=== PATIENT | male | born 1935 | race Caucasian/White ===

== ENCOUNTER 2016-05-16 14:45 | Inpatient (IN) | payer OTHER ==
[~2016-05-16] VITALS: Ht 175.3 cm; Wt 103.4 kg
--- NOTE | ~2016-05-16 | EKG ---
[place] [address] [facility] [place] [address] ELECTROCARDIOGRAM REPORT Name: RAVENJODI Kimberlyn Room #: 306-P ADM IN M.R.#: [id number] Admission: 05/16/16 Attend Phys: Domenic Dodson DO Discharge: Date of : 31 Report #: [id number] THIS REPORT FOR: //name// [facility] ED Test Date: 2016-05-16 Test Time: 15:18:35 Pat Name: JODI CARBAJAL Department: Room: 306 Gender: M Fish Flipper: latosha : 1935 Requested By: Beni Aguero Order Number: [id number] MD: Samm Brito Measurements Intervals Aragon Rate: 92 P: 30 IN: 165 QRS: 3 QRSD: 96 T: 61 QT: 384 QTc: 476 Interpretive Statements Sinus rhythm Atrial premature complexes Low voltage, extremity and precordial leads No previous ECG available for comparison Electronically Signed On 05-17-2016 7:34:48 [employer] OFFICER by Samm Brito [email or web address] <ELECTRONICALLY SIGNED> By: Samm Brito MD, [facility] 05/17/16 0734 1518 1518 Samm Brito MD, [facility] /EPI
--- NOTE | ~2016-05-16 | S ---
[facility] [place] [address] SURGICAL PATH RPT PROCEDURE Name: JEANNINE CARBAJAL Room #: 306-P [facility] IN M.R.#: [id number] Admission: 05/16/16 Date of : 31 Discharge: 05/24/16 Report #: [id number] Path Case #: [id number] PATHOLOGY REPORT COLLECTION DATE: 05/18/2016 RECEIVED DATE: 05/20/2016 SUBMITTING PHYS: Dr. Faraz Navarrete OTHER PHYS: Dr. Domenic Houser ADDENDUM REPORT (Order Date: 05/25/2016 15:48) ADDENDUM COMMENT: An addendum is issued to relay the immunohistochemical stain results: Immunohistochemical stains with appropriate controls show: (Block B1) AE1/AE3: positive PSAP: positive PSA: negative Based on the morphology and immunohistochemical staining pattern, these findings are consistent with involvement by metastatic carcinoma, prostatic origin. Correlation with clinical findings is recommended. (DOTQ:csd; d/t: 05/25/2016) Professional services performed by [employer] at [facility], [address] [address]. Technical services performed by [employer] at [address] [place] [address], [address] [place] [address]. ELECTRONICALLY SIGNED BY: Henna Vizcaino M.D. DATE/TIME:05/26/2016 17:05 SPECIMEN(S) RECEIVED: A.Bone marrow, clot B.Bone marrow, biopsy C.Bone marrow, aspirate smears D.Peripheral smear * * * * * * * * * * * * FINAL DIAGNOSIS: Bone marrow aspirate, biopsy, cell clot and peripheral blood: - Peripheral blood with severe normocytic anemia, left shifted granulocytes, severe thrombocytopenia, and circulating nucleated red blood cells. - BONE MARROW WITH DIFFUSE INVOLVEMENT BY FIBROSIS AND METASTATIC CARCINOMA. (SEE COMMENT) COMMENT: [place] [address] [place] [address] SURGICAL PATH RPT PROCEDURE Name: JEANNINE CARBAJAL Room #: 306-P [facility] IN [facility].#: [id number] Admission: 05/16/16 Date of : 31 Discharge: 05/24/16 Report #: [id number] Path Case #: [id number] Overall, the bone marrow is diffusely involved by a fibrotic process and metastatic carcinoma. Immunohistochemical stains for further subclassification are pending, and will be reported as an addendum. A artist's representative slide is co-reviewed with Dr. Blanche Darling. The case is discussed preliminarily with Dr. Faraz Navarrete on 05/23/16 at approximately 4:45 p.m. (CLW:; d/t: 05/24/16) PATHOLOGIST: Lidia Medrano M.D. REPORT ELECTRONICALLY SIGNED BY: Lidia Medrano M.D. DATE/TIME: 05/25/2016 12:49 * * * * * * * * * * * * MICROSCOPIC DESCRIPTION: CBC Data (05/18/16): WBC 4,300 /uL, RBC 1.79, hemoglobin 5.2 g/dL, hematocrit 15.9%, MCV 88.8 fL, MCH 29.4 pg, MCHC 33.0 g/dL, RDW 21.4%, and platelet count 25,000 /uL. Manual white blood cell differential: 41% segs, 10% bands, 26% lymphs, 10% monos, 7% eos, 2% basos, 2% metas, 2% myelos, and 3 nRBC/WBC. Peripheral Blood Smear: Cytomorphological examination of the Walker's stained peripheral blood smear confirms the provided data. Red blood cells show severe normocytic anemia with moderate anisocytosis. No significant poikilocytosis is identified. Dacrocytes (teardrop cells, pointed RBCs) are easily identified. White blood cells are predominantly segmented neutrophils and are without significant dyspoiesis. There is a mild to moderate left shift with rare myelocytes and metamyelocytes noted on scanning. Lymphocytes are predominantly small, round, and mature appearing with condensed chromatin and scant cytoplasm with admixed large granular lymphocytes. Monocytes are mature. Platelets are markedly decreased in number and mainly normal in morphology with rare larger platelets noted. Nucleated red blood cells are seen. Aspirate Smear: Cytomorphological examination of the Walker's stained aspirate smear show spicules present. The spicules shows markedly decreased trilineage hematopoiesis and are composed predominantly cohesive clusters of large atypical malignant cells. Iron stain of the aspirate smear shows 0/4+ iron positivity. It is predominantly blood and peripheral blood elements with no intact spicules present. Core Biopsy and Cell Clot: The decalcified bone marrow core biopsy is adequate. The bone marrow is diffusely replaced by a fibroblastic proliferation. Islands of cohesive malignant tumor cells are identified. Background trilineage hematopoiesis is markedly decreased. Bony trabeculae are expanded and sclerotic. Blood vessels are unremarkable. The cell clot is predominantly blood and peripheral blood elements with a rare small spicule present showing involvement by malignant tumor cells. [facility] [address] [place] [address] SURGICAL PATH RPT PROCEDURE Name: JEANNINE CARBAJAL Room #: 306-P [facility] IN M.R.#: [id number] Admission: 05/16/16 Date of : 31 Discharge: 05/24/16 Report #: [id number] Path Case #: [id number] stain of the cell clot (block A1) shows 0/4+ iron positivity. Flow Cytometry: Flow cytometric immunophenotypic analysis was performed at [facility]. The diagnosis is "no diagnostic immunophenotypic abnormalities detected." There are 29.6% lymphocytes. Of the lymphocytes, there are 48% T-cells with a CD4/CD8 ratio of 0.9 and no aberrant T-cell antigen expression and 7% polyclonal B-cells. There are 0.5% CD34 positive cells (blasts) and 0.15% precursor B-cells. No immunophenotypic evidence of a lymphoproliferative disorder, acute leukemia, increase in blasts or increase in plasma cells is identified. Please see separate flow cytometry report from [facility] ([id number]). Cytogenetics: Cytogenetic chromosomal analysis is was performed at [facility]. The karyotype is 46,XY[20]. The interpretation is a normal male karyotype. Cytogenetic analysis shows a normal male karyotype in all cells analyzed. Please see separate cytogenetics report from [facility] ([id number]). GROSS PATHOLOGY: A. Received in formalin labeled "Carbajal, Jeannine and clot (BM aspirate)," is blood coagulum, measuring 5.3 x 3.2 x 0.5 cm in aggregate dimensions. The specimen is submitted entirely in cassettes A1-A3. B. Received in formalin labeled "Carbajal, Jeannine and bone marrow biopsy," are 2 needle cores of palacio bone, measuring 1.2 and 1.5 cm in length and 0.2 cm in diameter. The specimen is submitted entirely in cassette B1, following decalcification. (TTL; 05/20/2016) CLINICAL HISTORY: 80 year-old man with severe anemia and thrombocytopenia; history of prostate cancer. INITIAL CPT CODE(S): A; 87460, 14810 B; 33659, 26756, 22824, 15231, 69823 C; 26632, 95720 D; 44019 Professional services performed by [facility] at [address], [place] [address] Technical services performed by [facility] at [address] [place] [address], [place] [address]. [facility] [address] [place] [address] SURGICAL PATH RPT PROCEDURE Name: JEANNINE CARBAJAL Kimberlyn Room #: 306-P [facility] IN .R.#: [id number] Admission: 05/16/16 Date of : 33 Discharge: 05/24/16 Report #: [id number] Path Case #: [id number] [facility] [address] [address] PHONE: [phone] DIRECTOR: Robby Wang M.D. * * * END OF REPORT * * *
--- NOTE | ~2016-05-16 | S ---
[facility] [place] [address] SURGICAL PATH RPT PROCEDURE Name: JODI CARBAJAL Room #: 306-P ADM IN M.R.#: [id number] Admission: 05/16/16 Date of : 33 Discharge: Report #: [id number] Path Case #: [id number] PATHOLOGY REPORT COLLECTION DATE: 05/17/2016 RECEIVED DATE: 05/18/2016 SUBMITTING PHYS: Dr. Faraz Navarrete OTHER PHYS: Dr. Domenic Patricia SPECIMEN(S) RECEIVED: A.Peripheral smear * * * * * * * * * * * * FINAL DIAGNOSIS: Peripheral blood smear: - Severe normocytic anemia, mildly left shifted granulocytes and severe thrombocytopenia. (see comment) COMMENT: Overall, the peripheral blood has severe normocytic anemia and severe thrombocytopenia. The WBC count is within the normal reference range. Granulocytes are mildly left shifted. The etiology of the findings is unclear based entirely on slide review. Potential causes of normocytic anemia include anemia of chronic disease, treated and/or compensated vitamin and mineral deficiencies, acute blood loss, and primary bone marrow disorders. Potential causes of thrombocytopenia include immune and non-immune platelet destruction, drug and/or toxic exposures, dilutional and primary bone marrow disorders. The differential diagnosis also includes a bone marrow infiltrative process. Correlation with clinical history and additional laboratory data is recommended. (CLW:; d/t: 05/18/16) PATHOLOGIST: Lidia Medrano M.D. REPORT ELECTRONICALLY SIGNED BY: Lidia Medrano M.D. DATE/TIME: 05/18/2016 21:34 * * * * * * * * * * * * MICROSCOPIC DESCRIPTION: CBC Data (05/17/16): WBC 4,600 /uL, RBC 1.91, hemoglobin 5.5 g/dL, hematocrit 17.1%, MCV 89.3 fL, MCH 28.8 pg, MCHC 32.3 g/dL, RDW 20.9%, and platelet count 25,000 /uL. Manual white blood cell differential: 34% segs, 26% bands, 22% lymphs, 9% monos, 6% eos, 2% metas, 1% myelos, and 5 NRBC/100 WBC. Peripheral Blood Smear: Cytomorphological examination of the Walker's stained peripheral [address] [address] SURGICAL PATH RPT PROCEDURE Name: JODI CARBAJAL Kimberlyn Room #: 306-P ADM IN [facility].#: [id number] Admission: 05/16/16 Date of : 33 Discharge: Report #: [id number] Path Case #: [id number] blood smear confirms the provided data. Red blood cells show severe normocytic anemia with mild anisocytosis. No significant poikilocytosis is identified. Scattered elliptocytes and dacryocytes (pointed RBCs, teardrop cells) are identified. No schistocytes or microspherocytes are seen. White blood cells are predominantly granulocytes. Granulocytes are predominantly mature (segmented neutrophils and band forms), and are without significant dyspoiesis. There is a mild left shift with occasional myelocytes and metamyelocytes noted on scanning. No blasts or Mitchell rods are seen. Lymphocytes are predominantly small, round, and mature appearing with condensed chromatin and scant cytoplasm with admixed large granular lymphocytes. On scanning, no markedly atypical lymphoid cells are seen. Monocytes are mature. Platelets are markedly decreased in number and mainly normal in morphology with rare larger platelets noted. CLINICAL HISTORY: 81 year-old man with prostate cancer and pancytopenia. Morphologic review of the peripheral blood smear is requested by the patient's physician. INITIAL CPT CODE(S): A; NC Professional services performed by [employer] at [facility] [address], [place] [address] Technical services performed by [employer] at [address] [place] [address], [address], [place] [address]. [facility] [address] [place] [address] PHONE: [phone] DIRECTOR: Robby Wang M.D. * * * END OF REPORT * * *
--- NOTE | ~2016-05-16 | P ---
[facility] [place] [address] PROCEDURE REPORT Name: JODI CARBAJAL Room #: 306-P [facility] IN .R.#: [id number] Admission: 05/16/16 Attend Phys: Domenic Dodson DO Discharge: 05/24/16 Date of : 33 Report #: [id number] THIS REPORT FOR: //name// CC: JULIANE Dodson DO Faraz Navarrete MD DATE OF SERVICE: 05/17/2016 PROCEDURE PERFORMED: EGD. HISTORY OF PRESENT ILLNESS: The patient is an 81-year-old male with a history of anemia. He also has a history of prostate cancer as well as weight loss. He apparently has metastatic prostate cancer. There is concern for the possibility of bone marrow involvement. Dr. Navarrete is following. He has a history of [employer] and refuses blood products. His hemoglobin is 5.7. He does have a Hemoccult positive stool as well as dark stools, but he has been taking p.o. iron. Plan is for EGD. DESCRIPTION OF PROCEDURE: The risks and benefits of the procedure were explained to the patient, those risks including but not limited to bleeding, perforation, the risk of sedation. He understood these risks and gave informed consent. Sedation was given using propofol per anesthesia. Next, using a standard [employer] upper endoscope, the scope was placed in the patient's mouth and advanced under direct vision through the esophagus, stomach and into the second portion of the duodenum. The esophagus was normal throughout. In the stomach, there was a mild gastritis with several clean white based ulcers in the gastric antrum. No evidence of active bleeding. The area was friable. The pylorus was normal and patent. In the duodenal bulb, there was a mild duodenitis noted. No evidence of active bleeding, otherwise normal upper endoscopy, the scope was then withdrawn and the procedure terminated. The patient tolerated the procedure well. IMPRESSION: 1. Several small clean white based ulcers in the gastric antrum, possible source of recent gastrointestinal bleed, no evidence of active bleeding at this time. 2. Mild duodenitis. RECOMMENDATIONS: Continue PPI drip today. We will add Carafate and continue monitoring hemoglobin closely. [facility] [address] [place] [address] PROCEDURE REPORT Name: RAVENJODI Sofia Room #: 306-P [facility] IN M.R.#: [id number] Admission: 05/16/16 Attend Phys: Domenic Dosdon DO Discharge: 05/24/16 Date of : 33 Report #: [id number] Thank you for allowing me to participate in his care. <ELECTRONICALLY SIGNED> By: Tee Patricia MD 06/01/16 1059 0834 1051 Tee Patricia MD /nt
--- NOTE | ~2016-05-16 | HC ---
[facility] [place] [address] CONSULTATION Name: JODI CARBAJAL Room #: 306-P ADM IN M.R.#: [id number] Admission: 05/16/16 Attend Phys: Domenic Dodson DO Discharge: Date of : 33 Report #: [id number] THIS REPORT FOR: //name// CC: Tee George MD, Dr. Domenic Lujan MD REASON FOR CONSULTATION: Cytopenias as well as prostate cancer. HISTORY OF PRESENT ILLNESS: The patient is an 81-year-old male from the [place], [place] area, who had worked in construction. He goes by the name Zeyad. Previously, he had been working with [employer] people. The patient's name means angry or irate. He had noticed about maybe an 80-pound weight loss, somewhat intentional, during the last year, but recently not so much and also feeling poorly for maybe the last 2-3 months or 7 weeks ago. He had been told that his blood was low about 7 weeks ago. I think that is about the time his hemoglobin was 8, which had been 14 before. He denies headache, fevers, chills, nausea, vomiting, dyspepsia, new constipation or new diarrhea. He does have dark stool, but it has been since his put him on oral iron pill maybe about 4-6 weeks ago. No new ankle swelling. No skin rash. He does feel exhausted. He feels like he is moving his air okay. PAST MEDICAL HISTORY: Past history is notable for the prostate cancer diagnosed [address] Calles his PSA was 3. He had biopsy with 7 out of 11 core biopsies positive. He does not know his [place] score. He did find, for about, I think, 3 years that his bone scan was positive. PSA was elevated, may be 190, though I am not sure what it was at that time. He had radiation therapy completed, he thinks, about February 2015. PSA went down low and recently, it had gone back up. He had been seeing Dr. Wes Pelaez, who had been planning to begin Zytiga with prednisone and it is currently to be delivered, but has not actually begun yet. Bone scans were done in [place]. Most of his lab work was done at [facility]. He also has a history of chronic back pain; sleep apnea, uses CPAP at home; also hernia that is recurrent, but he has had surgery times 3. 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 The patient had been taking one, because of his back pain, 1000 mg of Naprosyn b.i.d. for several years. ALLERGIES: None known. SOCIAL HISTORY: He is retired, used to do construction, both commercial and residential. Nonsmoker. No alcohol. No street drugs. He is [address] [address] CONSULTATION Name: JODI CARBAJAL Kimberlyn Room #: 306-P [facility] IN M.R.#: [id number] Admission: 05/16/16 Attend Phys: Domenic Dodson, Discharge: Date of : 33 Report #: [id number] Witness. FAMILY HISTORY: Mother from "uterine cancer" at age 43, but I wonder if it might have been ovarian cancer. He had 2 sisters with also some type of abdominal or possibly uterine cancer. No brothers. He had a son who from complications from hemodialysis. A daughter has multiple sclerosis and is BRCA positive. Has another son who, I do not believe, has been tested. His , Fatmata, is a patient of mine. LABORATORY DATA: Lab work here in the hospital is notable for on admission, his creatinine was 1.4; down the 1.1 after hydration. Albumin 3.4. AST is 73, alkaline phosphatase 1180. Recent lab had hemoglobin of 6.1 and I believe, today, it is 5.7; MCV of 88.1; white count 5.5; platelet count of 31,000 and RDW 21.1. Differential fairly normal, though the bands are up a little bit at 9%. Note that he has some nucleated RBCs, 7 and has some slight polychromasia and 2+ anisocytosis. His other lab is notable for iron of 93, URBC to 148, TIBC 241 and percent saturation 39. He also said on his differential, he has metamyelocytes and myelocytes. Ferritin was 1490. He describes having large platelets occasional. I do not have an MPV. Observed retic count is 6.29. Absolute retic count, I believe, is 125. Mean retic volume 110, immature reticulocyte fraction 0.7. PHYSICAL EXAMINATION: GENERAL: The patient appears his stated age. He is alert and oriented times 3, very pleasant. Good mood. Face is symmetrical, moving all extremities. VITAL SIGNS: Height is 5 feet 9, which is 175 cm. Weight is 228 pounds, which is 103.4 kilograms. Blood pressure is 125/62 with O2 sat of 98%, respirations 20 and pulse of 85. Afebrile with a current temperature of 98.4. HEENT: Again, face is symmetrical. LUNGS: Have symmetric unlabored respiratory expansion, without rhonchi, rales or wheezes. HEART: Appears regular rate. LYMPHATIC: No enlarged lymph nodes in the supraclavicular, cervical, axillary or inguinal region. ABDOMEN: Slightly protuberant, obese. No organomegaly. Nontender. No masses. EXTREMITIES: Without clubbing, cyanosis or edema. ASSESSMENT AND PLAN: 1. Cytopenias, could be very well from GI bleeding. Await GI evaluation for possible ulceration. Agree with proton pump inhibitor drip. We will also check, what appears to be a, slightly hypoproliferative disorder, maybe for marrow infiltration. I talked with the patient we will arrange for a bone marrow biopsy with contrast sedation. We will also check B12 and folate levels, also Meet and LDH. Note, the patient is very clear that he does not, due to baptist reasons, wish to receive transfusions. He is aware that this could [address] [address] CONSULTATION Name: JODI CARBAJAL Room #: 306-P [facility] IN .R.#: [id number] Admission: 05/16/16 Attend Phys: Domenic Dodson DO Discharge: Date of : 33 Report #: [id number] lead to his demise. He does not want to , but is prepared if it is his time, so to speak. We will ask for peripheral smear review. 2. Thrombocytopenia, with large platelets. Could be marrow infiltrative, immunologic or other etiology. We will check again bone marrow biopsy. We will also check peripheral smear review. May consider steroids once we know whether the patient has an ulcer on EGD or colonoscopy. We will also check coags. 3. History of prostate cancer, may be appropriate to begin Zytiga and prednisone. We will await to see bone marrow biopsy. 4. Obstructive sleep apnea. Continue CPAP as needed. 5. Possible gastrointestinal bleed. Continue with proton pump inhibitor. 6. BRCA-1 positivity. Unclear whether the patient's son has been tested or not. We will further discuss as we take care of the patient. <ELECTRONICALLY SIGNED> By: Faraz Navarrete MD 05/18/16 0737 0934 1145 Faraz Navarrete MD /nt
[2016-05-16 14:47] VITALS: BP 160/69
[2016-05-16 15:29] LABS: MCH 28.9 pg (26.0-34.0); MCHC 32.8 g/dL (28.0-37.0); MCV 88.1 fL (80.0-100.0); RBC 2.11 mil/uL (4.50-6.00); RDW 21.1 % (10.5-14.5); WBC 5.5 thou/uL (4.0-11.0)
[2016-05-16 15:32] LABS: MANUAL DIFF YES
[2016-05-16 15:33] LABS: HEMOGLOBIN 6.1 gm/dL (14.0-18.0)
[2016-05-16 15:34] LABS: HEMATOCRIT 18.5 % (42.0-52.0)
[2016-05-16 15:35] LABS: CALCIUM 8.1 mg/dL (8.5-10.1); CREATININE 1.4 mg/dL (0.6-1.3); POTASSIUM 4.9 mmol/L (3.5-5.1)
[2016-05-16 15:40] LABS: ALBUMIN 3.4 g/dL (3.4-5.0); TOTAL BILIRUBIN 0.7 mg/dL (<0.1-1.0); TOTAL PROTEIN 6.8 g/dL (6.4-8.2)
[2016-05-16 16:03] LABS: ABSOLUTE NEUTROPHILS 2.7 thou/uL (1.4-8.2); ANISOCYTOSIS 2+; METAMYELOCYTES 2 %; NUCLEATED RBCS 7 /100WBC; POLYCHROMASIA SLIGHT; TOTAL CELL COUNT 100
[2016-05-16 16:04] LABS: PLATELET COUNT 31 thou/uL (150-400)
[2016-05-16 18:42] VITALS: BP 146/74
[2016-05-16 19:28] VITALS: BP 126/57
[2016-05-16 20:19] LABS: % SATURATION 39 % (20-39); IRON 93 ug/dL (65-175); TIBC 241 ug/dL (250-450); UIBC 148 ug/dL
[2016-05-16 20:22] LABS: HEMATOCRIT 17.5 % (42.0-52.0); HEMOGLOBIN 5.8 gm/dL (14.0-18.0)
[2016-05-16 20:30] LABS: ABSOLUTE RETIC COUNT 0.1258 10^6/uL; OBSERVED RETIC COUNT 6.29 % (0.6-2.6)
[2016-05-16] MEDS ORDERED: ALLOPURINOL 30300 M2 PO (21:15)
[2016-05-16] MEDS ORDERED: LEVOTHYROXINE0.05 MG PO (21:17)
[2016-05-16] MEDS ORDERED: KLOR-CON M1010 MEQ PO (21:19)
[2016-05-16 23:42] VITALS: BP 114/54
[2016-05-17 02:16] LABS: MCH 28.8 pg (26.0-34.0); MCHC 32.3 g/dL (28.0-37.0); MCV 89.3 fL (80.0-100.0); RBC 1.91 mil/uL (4.50-6.00); RDW 20.9 % (10.5-14.5); WBC 4.6 thou/uL (4.0-11.0)
[2016-05-17 02:19] LABS: HEMOGLOBIN 5.5 gm/dL (14.0-18.0); MANUAL DIFF YES
[2016-05-17 02:20] LABS: HEMATOCRIT 17.1 % (42.0-52.0); PLATELET COUNT 25 thou/uL (150-400)
[2016-05-17 02:22] LABS: CALCIUM 7.8 mg/dL (8.5-10.1); CREATININE 1.1 mg/dL (0.6-1.3); POTASSIUM 4.4 mmol/L (3.5-5.1)
[2016-05-17 03:45] LABS: ABSOLUTE NEUTROPHILS 2.8 thou/uL (1.4-8.2); ANISOCYTOSIS 2+; MACROCYTES 1+; METAMYELOCYTES 2 %; MICROCYTES 1+; MYELOCYTES 1 %; NUCLEATED RBCS 5 /100WBC; PLATELET ESTIMATE MARKEDLY DECREASED; TOTAL CELL COUNT 100
[2016-05-17 03:46] LABS: LARGE PLATELETS OCCASIONAL
[2016-05-17 03:49] VITALS: BP 120/57
[2016-05-17 08:00] VITALS: BP 125/62
[2016-05-17 08:32] LABS: HEMATOCRIT 17.5 % (42.0-52.0); HEMOGLOBIN 5.7 gm/dL (14.0-18.0)
[2016-05-17 09:43] LABS: APTT 27.5 Seconds (24.5-32.8); INR 1.1; PROTIME 11.6 Seconds (9.3-11.4)
[2016-05-17 10:11] LABS: FOLIC ACID 18.8 ng/mL (8.6-58.9)
[2016-05-17 10:14] VITALS: BP 125/62
[2016-05-17 11:30] VITALS: BP 120/59
[2016-05-17 14:45] VITALS: BP 125/58
[2016-05-17 21:04] VITALS: BP 118/66
[2016-05-18 03:30] VITALS: BP 135/65
[2016-05-18 06:14] LABS: WBC 4.3 thou/uL (4.0-11.0)
[2016-05-18 06:16] LABS: MCH 29.4 pg (26.0-34.0); MCV 88.8 fL (80.0-100.0); RBC 1.79 mil/uL (4.50-6.00); RDW 21.4 % (10.5-14.5)
[2016-05-18 06:28] LABS: CALCIUM 7.7 mg/dL (8.5-10.1); CREATININE 1.2 mg/dL (0.6-1.3); POTASSIUM 4.5 mmol/L (3.5-5.1)
[2016-05-18 06:52] LABS: MANUAL DIFF YES
[2016-05-18 06:55] LABS: HEMATOCRIT 15.9 % (42.0-52.0); HEMOGLOBIN 5.2 gm/dL (14.0-18.0); PLATELET COUNT 25 thou/uL (150-400)
[2016-05-18 08:36] LABS: ABSOLUTE NEUTROPHILS 2.2 thou/uL (1.4-8.2); ANISOCYTOSIS 2+; HYPOCHROMASIA 2+; METAMYELOCYTES 2 %; MYELOCYTES 2 %; NUCLEATED RBCS 3 /100WBC; PLATELET ESTIMATE MARKEDLY DECREASED; TOTAL CELL COUNT 100
[2016-05-18 08:46] VITALS: BP 115/65
[2016-05-18 16:00] VITALS: BP 121/57
[2016-05-18 17:15] LABS: WBC 5.4 thou/uL (4.0-11.0)
[2016-05-18 17:17] LABS: MCH 29.2 pg (26.0-34.0); MCHC 32.7 g/dL (28.0-37.0); MCV 89.2 fL (80.0-100.0); RDW 21.5 % (10.5-14.5)
[2016-05-18 17:23] LABS: HEMATOCRIT 17.8 % (42.0-52.0); HEMOGLOBIN 5.8 gm/dL (14.0-18.0)
[2016-05-18 19:50] VITALS: BP 129/77
[2016-05-19 03:50] VITALS: BP 111/70
[2016-05-19 06:05] LABS: RDW 21.2 % (10.5-14.5)
[2016-05-19 06:08] LABS: MCH 29.3 pg (26.0-34.0); MCHC 32.9 g/dL (28.0-37.0); MCV 88.8 fL (80.0-100.0); RBC 1.98 mil/uL (4.50-6.00); WBC 6.6 thou/uL (4.0-11.0)
[2016-05-19 06:19] LABS: HEMATOCRIT 17.6 % (42.0-52.0); HEMOGLOBIN 5.8 gm/dL (14.0-18.0)
[2016-05-19 06:30] LABS: ALBUMIN 3.1 g/dL (3.4-5.0); CREATININE 1.1 mg/dL (0.6-1.3); POTASSIUM 4.9 mmol/L (3.5-5.1); TOTAL BILIRUBIN 0.5 mg/dL (<0.1-1.0); TOTAL PROTEIN 6.6 g/dL (6.4-8.2)
[2016-05-19 09:17] VITALS: BP 120/44
[2016-05-19 18:15] VITALS: BP 106/45
[2016-05-19 19:50] VITALS: BP 105/59
[2016-05-20 03:57] VITALS: BP 106/53
[2016-05-20 06:19] LABS: MCH 29.5 pg (26.0-34.0); MCHC 32.7 g/dL (28.0-37.0); MCV 90.1 fL (80.0-100.0); RBC 1.77 mil/uL (4.50-6.00); RDW 21.6 % (10.5-14.5); WBC 7.5 thou/uL (4.0-11.0)
[2016-05-20 06:38] LABS: HEMATOCRIT 15.9 % (42.0-52.0); HEMOGLOBIN 5.2 gm/dL (14.0-18.0); MANUAL DIFF YES; PLATELET COUNT 29 thou/uL (150-400)
[2016-05-20 07:27] LABS: NUCLEATED RBCS 2 /100WBC; TOTAL CELL COUNT 100
[2016-05-20 07:29] LABS: ANISOCYTOSIS 1+
[2016-05-20 15:13] LABS: MCH 29.4 pg (26.0-34.0); MCHC 32.6 g/dL (28.0-37.0); MCV 90.4 fL (80.0-100.0); RBC 1.82 mil/uL (4.50-6.00); RDW 21.7 % (10.5-14.5); WBC 6.9 thou/uL (4.0-11.0)
[2016-05-20 15:22] LABS: HEMATOCRIT 16.4 % (42.0-52.0)
[2016-05-20 15:23] LABS: HEMOGLOBIN 5.3 gm/dL (14.0-18.0)
[2016-05-20 19:50] VITALS: BP 125/62
[2016-05-21 04:05] VITALS: BP 125/67
[2016-05-21 08:28] VITALS: BP 136/71
[2016-05-21 15:42] VITALS: BP 104/54
[2016-05-21 20:50] VITALS: BP 119/63
[2016-05-22 04:20] VITALS: BP 128/69
[2016-05-22 07:53] VITALS: BP 123/69
[2016-05-22 15:40] VITALS: BP 98/46
[2016-05-22 19:21] VITALS: BP 116/56
[2016-05-23 03:41] VITALS: BP 136/61
[2016-05-23 05:47] LABS: MCH 29.6 pg (26.0-34.0); MCHC 32.6 g/dL (28.0-37.0); MCV 90.8 fL (80.0-100.0); RBC 2.01 mil/uL (4.50-6.00); RDW 21.9 % (10.5-14.5); WBC 6.2 thou/uL (4.0-11.0)
[2016-05-23 06:06] LABS: MANUAL DIFF YES
[2016-05-23 06:08] LABS: HEMATOCRIT 18.2 % (42.0-52.0); HEMOGLOBIN 5.9 gm/dL (14.0-18.0); PLATELET COUNT 32 thou/uL (150-400)
[2016-05-23 07:33] LABS: ABSOLUTE NEUTROPHILS 2.9 thou/uL (1.4-8.2); ATYPICAL LYMPHS 1 %; METAMYELOCYTES 11 %; MYELOCYTES 10 %; NUCLEATED RBCS 13 /100WBC; TOTAL CELL COUNT 100
[2016-05-23 07:34] LABS: OVALOCYTES 1+
[2016-05-23 07:35] LABS: ANISOCYTOSIS 2+; POLYCHROMASIA 1+
[2016-05-23 08:01] VITALS: BP 128/64
[2016-05-23 11:45] VITALS: BP 103/46
[2016-05-23 16:30] VITALS: BP 151/63
[2016-05-23 20:00] VITALS: BP 130/49
[2016-05-24 04:00] VITALS: BP 124/58
[2016-05-24] MEDS ORDERED: CARAFATE 1 GM TA1 G1 PO ×2 (10:00→10:30)
[2016-05-24 10:02] VITALS: BP 124/58
[2016-05-24 10:29] LABS: WBC 4.7 thou/uL (4.0-11.0)
[2016-05-24 10:31] LABS: MCH 29.3 pg (26.0-34.0); MCHC 33.1 g/dL (28.0-37.0); MCV 88.6 fL (80.0-100.0); RBC 2.02 mil/uL (4.50-6.00); RDW 21.5 % (10.5-14.5)
[2016-05-24 10:33] LABS: MANUAL DIFF YES
[2016-05-24 10:34] LABS: HEMATOCRIT 17.9 % (42.0-52.0); HEMOGLOBIN 5.9 gm/dL (14.0-18.0); PLATELET COUNT 31 thou/uL (150-400)
[2016-05-24 10:52] LABS: NUCLEATED RBCS 2 /100WBC; TOTAL CELL COUNT 100
[2016-05-24 10:55] LABS: MYELOCYTES 6 %
[2016-05-24 10:56] LABS: METAMYELOCYTES 7 %
[2016-05-24 10:57] LABS: ABSOLUTE NEUTROPHILS 2.8 thou/uL (1.4-8.2)
[2016-05-24 10:59] LABS: ANISOCYTOSIS 2+
== END 2016-05-24 15:30 | disposition home health service (06) | DRG 378 ==
LOC: ER 14:45 → 3N 16:42 → EROBS 16:42 → 3N 17:53
PROVIDERS: Internal Medicine Gastroenterology; Internal Medicine Geriatric Medicine; Internal Medicine Hematology & Oncology; Nurse Practitioner Adult Health; Physician Assistant
PROC: 0DJ08ZZ Inspection of Upper Intestinal Tract, Via Natural or Artificial Opening Endoscopic (ICD-10-PCS; 2016-05-17)
PROC: 07DR3ZX Extraction of Iliac Bone Marrow, Percutaneous Approach, Diagnostic (ICD-10-PCS; principal; 2016-05-18)
DX: K92.2 Gastrointestinal hemorrhage, unspecified (principal); N17.9 Acute kidney failure, unspecified; T39.395A Adverse effect of other nonsteroidal anti-inflammatory drugs [NSAID], initial encounter; G89.29 Other chronic pain; M54.9 Dorsalgia, unspecified; E83.51 Hypocalcemia; C61 Malignant neoplasm of prostate; D75.9 Disease of blood and blood-forming organs, unspecified; D69.6 Thrombocytopenia, unspecified; G47.33 Obstructive sleep apnea (adult) (pediatric); M19.90 Unspecified osteoarthritis, unspecified site; I10 Essential (primary) hypertension; D64.9 Anemia, unspecified; M10.9 Gout, unspecified; E03.9 Hypothyroidism, unspecified; Z96.659 Presence of unspecified artificial knee joint; Z96.612 Presence of left artificial shoulder joint; Z80.59 Family history of malignant neoplasm of other urinary tract organ; Z80.41 Family history of malignant neoplasm of ovary